=== PATIENT | male | born 1995 | race Caucasian/White ===

== ENCOUNTER 2020-10-26 01:41 | Emergency (ER) | payer MEDICAID, SELFPAY ==
[2020-10-26 01:45] VITALS: BP 149/83; PULSE 110; RESP 20; TEMP 37.3; O2SAT 100
--- NOTE | 2020-10-26 01:50 | ED.OVERDOSE ---
HPI - Overdose General Chief Complaint: Overdose Stated Complaint: Possible overdose Time Seen by Provider: 10/26/20 01:50 Source: patient, EMS and RN notes reviewed Mode of arrival: EMS Limitations: no limitations History of Present Illness HPI Narrative: patient was apparently unresponsive, friends were having difficulty waking him. They threw a bucket of ice water on him. EMS arrived and gave him 1 mg of Narcan IV push and he is awake and alert but says he is very cold. He says he uses Vicodin on a regular basis which he buys off the street. complaint: accidental overdose Onset (ago): hour(s) (1) Timing confirmed by: other (friend) Intent: other (pain) Context: Accidental Overdose: other (Wanted to control leg pain) Treatments Prior to Arrival: narcan (1 mg IV) Related Data Home Medications Medication Instructions Recorded Confirmed No Home Medications 10/26/20 10/26/20 Allergies Allergy/AdvReac Type Severity Reaction Status Date / Time tramadol Allergy Seizure Verified 10/26/20 01:52 Review of Systems Review of Systems: All systems reviewed & are unremarkable except as noted in HPI and below PMFSH Past Medical History Medical History (Updated 10/26/20 @ 01:55 by Augusto Huerta MD) Depression Surgical History Surgical History (Updated 10/26/20 @ 01:55 by Augusto Huerta MD) No pertinent past surgical history Social History Social History (Updated 10/26/20 @ 01:59 by Augusto Huerta MD) Smoking packs per day: 0.5 Smoking cigarettes per day: 10.0 Smoking status: Current every day smoker Alcohol intake: current Alcohol use details: occasional Substance use: current Substance use type: marijuana and opiates Exam Const: General: healthy appearing and no acute distress Nutritional Appearance: well nourished and thin Orientation/consciousness: patient oriented x3 HENMT: Head: normal to inspection Ears: external ears normal General nose exam: Normal external nose present Mouth: Yes lip normal and Yes moist mucous membranes Eyes: Eyelids: eyelids normal Conjunctivae: conjunctivae normal Sclera: sclerae normal Pupils: Pinpoint pupils bilaterally EOM: EOMs intact bilaterally Chest: Chest palpation & inspection: normal inspection of the chest Resp: Effort & Inspection: normal respiratory effort Auscultation: clear to auscultation bilaterally Cardio: Rate: tachycardic Rhythm: regular rhythm GI: GI Palp: Yes Soft to palpation and No Tenderness to palpation present (GI) Auscultation: normal bowel sounds Back/Spine/Pelvis: Cervical Spine: cervical ROM normal Thoracic/Lumbar Spine: thoraco-lumbar ROM normal Skin: General skin exam: normal color Rashes: no rashes Neuro: General: patient oriented x3, moves all extremities and no focal motor deficits Speech: normal speech Motor exam (neuro): 5/5 motor strength present throughout Extrem: General: normal to inspection and no pedal edema Psych: Appearance: grossly normal and well kempt Mental Status: mental status grossly normal Affect: normal affect Attitude: cooperative Thought content: Yes Normal thought content present Course Vital Signs Vital signs: Vital Signs Temperature 37.3 C 10/26/20 01:45 Pulse Rate 110 H 10/26/20 01:45 Respiratory Rate 20 10/26/20 01:45 Blood Pressure 149/83 H 10/26/20 01:45 Pulse Oximetry 100 10/26/20 01:45 Temperature 37.3 C 10/26/20 01:45 Pulse Rate 110 H 10/26/20 01:45 Respiratory Rate 20 10/26/20 02:03 Blood Pressure 149/83 H 10/26/20 01:45 Pulse Oximetry 100 10/26/20 01:45 MDM - Overdose Lab Data Result diagrams: 10/26/20 02:09 10/26/20 02:09 Labs: Lab Results 10/26/20 10/26/20 10/26/20 Range/Units 02:09 02:09 02:25 WBC 9.3 (4.8-10.8) K/mm3 RBC 3.96 L (4.70-6.10) M/mm3 Hgb 11.4 L (14.0-18.0) g/dL Hct 34.6 L (40.0-54.0) % MCV 87.4 (78.0-102.0) fL MCH 28.8 (27.0-31.0)
[2020-10-26 02:03] VITALS: RESP 20
[2020-10-26 02:16] LABS: Basophils Absolute Auto 0.04 K/mm3 (0.00-0.10); Basophils Percent Auto 0.4 % (0.0-1.0); Eosinophils Absolute Auto 0.09 K/mm3 (0.02-0.50); Hematocrit 34.6 % (40.0-54.0); Hemoglobin 11.4 g/dL (14.0-18.0); Immature Granulocyte Absolute 0.11 K/mm3 (0.00-0.00); Immature Granulocyte Percent A 1.2 % (0.0-0.0); Lymphocytes Absolute Auto 1.94 K/mm3 (1.10-4.50); Mean Corpuscular HGB Conc 32.9 g/dL (32.0-36.0); Mean Corpuscular Hemoglobin 28.8 pg (27.0-31.0); Mean Corpuscular Volume 87.4 fL (78.0-102.0); Mean Platelet Volume 8.7 fl (8.7-11.0); Monocytes Absolute Auto 0.92 K/mm3 (0.10-0.90); Monocytes Percent Auto 9.9 % (2.0-11.0); Neutrophils Absolute Auto 6.2 K/mm3 (1.7-7.2); Neutrophils Percent Auto 66.5 % (50.0-70.0); Platelet Count Result 386 K/mm3 (150-420); Red Blood Count 3.96 M/mm3 (4.70-6.10); Red Cell Distribution Width 11.6 % (11.6-14.4); White Blood Count 9.3 K/mm3 (4.8-10.8)
[2020-10-26 02:36] LABS: Alanine Aminotransferase 44 U/L (16-63); Albumin Level 2.9 g/dL (3.4-5.0); Alkaline Phosphatase 83 U/L (46-116); Anion Gap 8 mmol/L (8-16); Aspartate Amino Transferase 27 U/L (15-37); Bilirubin,Total 0.3 mg/dL (0.00-1.00); Blood Urea Nitrogen 8 mg/dL (7-18); Calcium 8.7 mg/dL (8.5-10.1); Carbon Dioxide 29 mmol/L (21-32); Chloride 101 mmol/L (98-108); Estimated CRCL calculation 140 ml/min; Estimated Glomerular Filt Rate > 60; Ethanol 4 mg/dL (0-6); Glucose 82 mg/dL (70-99); Osmolality Calculated 283 mOsm/kg (285-295); Potassium 3.5 mmol/L (3.5-5.1); Salicylate 1.2 mg/dL (2.8-20.0); Sodium 138 mmol/L (136-145); Total Protein 7.7 g/dL (6.4-8.2)
[2020-10-26 02:39] LABS: Acetaminophen < 2 ug/mL (10-30)
[2020-10-26 02:47] LABS: Amphetamine Screen Urine Positive (Negative); Barbiturate Screen Urine Negative (Negative); Benzodiazepines Screen Urine Negative (Negative); Cannabinoid Screen Urine Positive (Negative); Cocaine Screen Urine Negative (Negative); Methadone Screen Urine Negative (Negative); Opiate Screen Urine Negative (Negative); Phencyclidine Screen Urine Negative (Negative)
[2020-10-26 03:30] VITALS: BP 130/75; PULSE 85; RESP 18; O2SAT 100
== END 2020-10-26 03:42 | disposition home or self-care (01) ==
PROVIDERS: Emergency Provider Emergency Medicine
DX: T40.2X1A Poisoning by other opioids, accidental (unintentional), initial encounter (principal)
CPT/HCPCS: 36415; 80053; 80307; 85025; 99283